=== PATIENT | female | born 1945 | race African-American/Black ===

== ENCOUNTER 2016-07-29 23:36 | Emergency (ER) | payer MEDICARE, MEDICAID | END 2016-07-30 01:06 | disposition left against medical advice (07) | LOC: ER 23:36 | DX: Z53.21 Procedure and treatment not carried out due to patient leaving prior to being seen by health care provider (principal) ==

== ENCOUNTER → 2016-10-25 | Outpatient (CLI) | payer MEDICARE, MEDICAID ==
[2016-10-25 14:19] LABS: ALANINE AMINOTRANSFERASE 25 U/L (9-52); ALBUMIN 3.8 g/dL (3.5-5.0); ALKALINE PHOSPHATASE 83 U/L (38-126); ANION GAP 12 (5-19); ASPARTATE AMINO TRANSFERASE 17 U/L (14-36); BILIRUBIN,DIRECT 0.1 mg/dL (0.0-0.4); BILIRUBIN,TOTAL 0.5 mg/dL (0.2-1.3); BLOOD UREA NITROGEN 10 mg/dL (7-20); CALCIUM 9.6 mg/dL (8.4-10.2); CARBON DIOXIDE 27 mmol/L (22-30); CHLORIDE 106 mmol/L (98-107); CREATININE RESULT 0.52 mg/dL (0.52-1.25); GLUCOSE 126 mg/dL (75-110); POTASSIUM 3.8 mmol/L (3.6-5.0); SODIUM 145.1 mmol/L (137-145); TOTAL PROTEIN 6.5 g/dL (6.3-8.2)
== END ==
LOC: OD 12:55
PROVIDERS: ATTEND Internal Medicine Geriatric Medicine
DX: E11.65 Type 2 diabetes mellitus with hyperglycemia (principal)
CPT/HCPCS: 36415; 80053

== ENCOUNTER 2017-12-11 10:25 | Day surgery (SDC) | payer MEDICARE, MEDICAID ==
[2017-12-08 12:16] LABS: HEMATOCRIT 37.6 % (36.0-47.0); HEMOGLOBIN 12.5 g/dL (12.0-15.5); MEAN CORPUSCULAR HEMOGLOBIN 29.5 pg (27.0-33.4); MEAN CORPUSCULAR HGB CONC 33.4 g/dL (32.0-36.0); MEAN CORPUSCULAR VOLUME 89 fl (80-97); PLATELET COUNT 221 10^3/uL (150-450); RED BLOOD COUNT 4.24 10^6/uL (3.72-5.28); RED CELL DISTRIBUTION WIDTH 15.2 % (11.5-14.0); WHITE BLOOD COUNT 5.1 10^3/uL (4.0-10.5)
--- NOTE | 2017-12-08 12:30 | RADIOLOGY REPORT (SQ) ---
EXAM DESCRIPTION: CHEST PA/LATERAL COMPLETED DATE/TIME: 12/08/2017 11:44 am REASON FOR STUDY: PRE-OP COMPARISON: 04/26/2016 EXAM PARAMETERS: NUMBER OF VIEWS: two views TECHNIQUE: Digital Frontal and Lateral radiographic views of the chest acquired. RADIATION DOSE: NA LIMITATIONS: none FINDINGS: LUNGS AND PLEURA: No opacities, masses or pneumothorax. No pleural effusion. MEDIASTINUM AND HILAR STRUCTURES: No masses or contour abnormalities. HEART AND VASCULAR STRUCTURES: Heart normal size. No evidence for failure. BONES: No acute findings. HARDWARE: None in the chest. OTHER: No other significant finding. IMPRESSION: NO SIGNIFICANT RADIOGRAPHIC FINDING IN THE CHEST. TECHNICAL DOCUMENTATION: JOB ID: [id number] [employer]- All Rights Reserved Reading location - IP/workstation name: [email or web address]
[2017-12-08 12:41] LABS: ANION GAP 12 (5-19); BLOOD UREA NITROGEN 10 mg/dL (7-20); CALCIUM 10.3 mg/dL (8.4-10.2); CARBON DIOXIDE 28 mmol/L (22-30); CHLORIDE 105 mmol/L (98-107); GLUCOSE 99 mg/dL (75-110); POTASSIUM 4.5 mmol/L (3.6-5.0); SODIUM 145.1 mmol/L (137-145)
--- NOTE | 2017-12-08 20:01 | EKG REPORT ---
SEVERITY:- ABNORMAL ECG - SINUS RHYTHM ATRIAL PREMATURE COMPLEX CONSIDER LEFT VENTRICULAR HYPERTROPHY : Confirmed by: Kennedi Michele MD 08-Dec-2017 20:00:40
[~2017-12-11 10:25] MED LIST: LACTATED RINGERS 1000 ML IV PRN; LIDOCAINE 0.5% INJ-PF (5 MG/ML) 50 ML SDV SUBCUT PRN
[2017-12-11] MEDS ORDERED: MIDAZOLAM 2 MG/2 ML INJ ONE (12:00)
[2017-12-11] MEDS ORDERED: PROPOFOL INJ 200 MG/20 ML VIAL IV ONE (12:00)
[2017-12-11] MEDS ORDERED: FENTANYL CITRATE INJ/PF 100 MCG/2 ML AMPUL ONE (12:00)
[2017-12-11] MEDS ORDERED: BUPIVACAINE HCL 0.5%/EPI 1:200000 INJ 1.8 ML CARTRIDGE ONE ×2 (12:03→12:29)
[2017-12-11] MEDS ORDERED: LIDOCAINE 2%/EPINEPHRINE INJ 1.7 ML CARTRIDGE ONE ×2 (12:03→12:47)
[2017-12-11] MEDS ORDERED: DIPHENHYDRAMINE HCL 50 MG/ML VIAL IV PRN (12:53)
[2017-12-11] MEDS ORDERED: FENTANYL CITRATE INJ/PF 100 MCG/2 ML AMPUL IV PRN ×3 (12:53)
[2017-12-11] MEDS ORDERED: MEPERIDINE HCL/PF INJ 25 MG/1 ML DISP.SYRIN IV PRN (12:53)
[2017-12-11] MEDS ORDERED: PROMETHAZINE HCL INJ 25 MG/1 ML VIAL IV PRN (12:53)
--- NOTE | 2017-12-11 14:32 | Operative Report ---
Operative Report DATE OF SURGERY: 12/11/17 Operative Report: preop diagnosis: non-retorative maxillary dentition, palatal leidy, non- restorative mandibular teeth 17,18, 25, 32 postop diagnosis: randall surgery performed: extraction of teeth 3,4,6,7,8,10,13,16,17,18,25,32; palatal leidy removal, alveoloplasty all four quadrants surgeon: Koby EBL:15ml Fluids: 1000ml LR tissue sent: none complications: none PREOPERATIVE DIAGNOSIS: non-restorable maxillary dentition (3,4,6,7,8,10, 13,16) . palatal leidy. non-restorable mandibular teeth #17,18,25,32 POSTOPERATIVE DIAGNOSIS: Same as preop OPERATION: Surgical extraction of all remaining maxillary teeth (3,4,6,7,8,10,13 ,16. Surgical extraction of mandibular teeth #17,18,25,32. Surgical removal of palatal leidy. Alveoloplasty UR, UL, LL, LR SURGEON: TAE PINK 1ST CONFIGURATION CONSULTANT: none 2ND Senior Sales Operations Manager: none ANESTHESIA: GA TISSUE REMOVED OR ALTERED: all remaining maxillary teeth, mandibular teeth 17,18 ,25,32. excess palatal bone COMPLICATIONS: none ESTIMATED BLOOD LOSS: 15ml INTRAOPERATIVE FINDINGS: Consistent with preop diagnosis PROCEDURE: Pt taken to MOR #3. GA induced via GNETA by anesthesia team. After adequate anesthesia and vital signs verified care of pt turned over to surgerical team. Local Anesthetic injected into all four quadrants. Throat pack placed. Teeth numbered 3, 4, 6, 7, 8 10, 13, 16, 17, 18, 25, 32 extracted in the standard surgical fashion and delivered from the oral cavity with a combination of esperanza hemostats and forceps, Alveoloplasties performed with ronguer hemostats and bone file in all four quadrants. Attention was then directed to the patient's palate where a # 15 blade was utilized to make a full thickness mucoperiosteal incision in a Y outline over the palatal Leidy. A full thickness mucoperiosteal flap was lifted with a #9 molt periosteal elevator. A 703 bur on rotating surgical handpiece was used to section the leidy in a grid like osteotomy pattern. A flat chisal was then used to separate the parts and smooth the palatal bone. All surgical wounds were then irrigated with copious sterile irrigation and the soft tissue were reapproximated with 4.0 chromic gut suture. The throat pack was removed and care of the patient returned to the anesthesia team who awakened the patient who maintained stable vital signs and tolerated the procedure well. the patient was transported to the PACU.
[2017-12-11] MEDS ORDERED: HYDROCODONE/ACETAMINOPHEN 5-325 MG TABLET PO PRN (14:36)
[2017-12-11] MEDS ORDERED: PROMETHAZINE HCL 25 MG TABLET PO PRN (14:37)
[2017-12-11] MEDS ORDERED: ONDANSETRON 4 MG TAB.RAPDIS PO PRN (14:37)
[2017-12-11] MEDS ORDERED: SUCCINYLCHOLINE CHLORIDE INJ 200 MG/10 ML VIAL ONE (15:23)
[2017-12-11] MEDS ORDERED: GLYCOPYRROLATE 1 MG/5 ML SYRINGE ONE (15:23)
[2017-12-11 16:23] VITALS: BP 152/74
== END 2017-12-11 16:20 | disposition home or self-care (01) ==
LOC: OROUT 10:25
PROVIDERS: ATTEND Dentist Oral and Maxillofacial Surgery
DX: K02.9 Dental caries, unspecified (principal); K08.89 Other specified disorders of teeth and supporting structures; M27.0 Developmental disorders of jaws; D64.9 Anemia, unspecified; J44.9 Chronic obstructive pulmonary disease, unspecified; K21.9 Gastro-esophageal reflux disease without esophagitis; E78.00 Pure hypercholesterolemia, unspecified; I10 Essential (primary) hypertension; E78.5 Hyperlipidemia, unspecified; M19.90 Unspecified osteoarthritis, unspecified site; F17.210 Nicotine dependence, cigarettes, uncomplicated; E11.9 Type 2 diabetes mellitus without complications; Z79.01 Long term (current) use of anticoagulants; Z01.818 Encounter for other preprocedural examination; Z88.8 Allergy status to other drugs, medicaments and biological substances; Z88.2 Allergy status to sulfonamides; Z79.899 Other long term (current) drug therapy; Z79.51 Long term (current) use of inhaled steroids
CPT/HCPCS: 41899; 41874 ×4; 21032; 93005; 36415; 82962; 85027; 80048; 71046; 93010; J2250; J3490 ×2; J3010; J0330; J2704; 170

== ENCOUNTER → 2018-08-06 | Outpatient (CLI) | payer MEDICARE, MEDICAID ==
--- NOTE | 2018-08-06 14:33 | WOMENS IMAGING REPORT ---
EXAM DESCRIPTION: BILAT DIAGNOSTIC MAMMO W/CAD; U/S BREAST UNILAT LIMITED COMPLETED DATE/TIME: 08/06/2018 11:27 am; 08/06/2018 12:19 pm REASON FOR STUDY: N63.24, UNSPECIFIED LUMP IN LEFT BREAST,LOWER INNER QUADRANT; N63.24 LEFT BREAST N 63.24 UNSPECIFIED LUMP IN THE LEFT BREAST, LOWER INNER QUAD COMPARISON: Bilateral screening 05/07/2017 TECHNIQUE: Standard craniocaudal and mediolateral oblique views of each breast recorded using digita l acquisition. Left breast 90 mediolateral view, left breast cone compression mammograms in the MLO and CC orientat ions Left breast ultrasound was also performed in the area of palpable abnormality LIMITATIONS: None. FINDINGS: RIGHT BREAST MASSES: No suspicious masses. CALCIFICATIONS: No new or suspicious calcifications. ARCHITECTURAL DISTORTION: None. DEVELOPING DENSITY: None. ASYMMETRY: None noted. OTHER: No other significant findings. LEFT BREAST MASSES: In the lower inner quadrant left breast 8 to 9 o'clock position, a 2 cm mass is present with partial border loss and calcifications highly suspicious for malignancy. CALCIFICATIONS: No new or suspicious calcifications. ARCHITECTURAL DISTORTION: None. DEVELOPING DENSITY: None. ASYMMETRY: None noted. OTHER: No other significant finding. Read with the assistance of CAD: .[facility] - R2 Cenova Version 1.3 .[facility] - R2 Cenova Version 2.[address] - R2 Cenova Version 2.4 .[facility] R[place] Cenova Version 2.4 .[facility] - R2 [employer] Sales Representative Version 9.2 Left breast ultrasound: Ultrasound of the left breast was performed. A 2 x 1.8 x 1.2 cm hypoechoic solid mass with irregular borders and internal color flow is present in the left breast lower inner quadrant 8 to 9 o'clock po sition. Some calcifications within the mass are identified at ultrasound. This is highly suspicious for malignancy. Ultrasound-guided core biopsy and post biopsy clip placement with immediate follow- up two-view mammogram recommended. Ultrasound of the left axilla today demonstrates no enlarged lymph nodes. IMPRESSION: No mammographic evidence for malignancy right breast. Mass lower inner quadrant left breast highly suspicious for malignancy. Ultrasound-guided core biops y and post biopsy clip placement with immediate follow-up two-view mammogram is recommended. BREAST DENSITY: c. The breasts are heterogeneously dense, which may obscure small masses. BIRAD: 5 Highly suggestive of malignancy. Appropriate action should be taken. RECOMMENDATION: RECOMMENDED FOLLOW UP: Left breast ultrasound-guided core biopsy, post biopsy clip p lacement with immediate follow-up two-view mammogram SPECIFIC INTERVENTION/IMAGING/CONSULTATION RECOMMENDED:Left breast biopsy COMMUNICATION:Patient notified by letter COMMENT: The patient has been notified of the results by letter per SA requirements. Additional no tification policies are in place for contacting patient with suspicious or incomplete findings. Quality ID #[id number]: The [employer] recommends an annual screening mammogram for women aged 40 years or over. This facility utilizes a reminder system to ensure that all patients receive reminder letters, and/or direct phone calls for appointments. This includes reminders for routine scr eening mammograms, diagnostic mammograms, or other Breast Imaging Interventions when appropriate. Th is patient will be placed in the appropriate reminder system. The [employer] (ACR) has developed recommendations for screening MRI of the breast s in certain patient populations, to be used in conjunction with mammography. Breast MRI surveillanc e may be appropriate for women with more than 20% lifetime risk of developing breast cancer as deter mined by genetic testing, significant family history of the disease, or history of mantle radiation f or Hodgkins Disease. ACR Practice Guidelines 2008. TECHNICAL DOCUMENTATION: FINDING NUMBER: (1) ASSESSMENT: (1) JOB ID: [id number] [employer]- All Rights Reserved Reading location - IP/workstation name: [email or web address]
--- NOTE | 2018-08-06 14:33 | WOMENS IMAGING REPORT ---
EXAM DESCRIPTION: BILAT DIAGNOSTIC MAMMO W/CAD; U/S BREAST UNILAT LIMITED COMPLETED DATE/TIME: 08/06/2018 11:27 am; 08/06/2018 12:19 pm REASON FOR STUDY: N63.24, UNSPECIFIED LUMP IN LEFT BREAST,LOWER INNER QUADRANT; N63.24 LEFT BREAST N 63.24 UNSPECIFIED LUMP IN THE LEFT BREAST, LOWER INNER QUAD COMPARISON: Bilateral screening 05/07/2017 TECHNIQUE: Standard craniocaudal and mediolateral oblique views of each breast recorded using digita l acquisition. Left breast 90 mediolateral view, left breast cone compression mammograms in the MLO and CC orientat ions Left breast ultrasound was also performed in the area of palpable abnormality LIMITATIONS: None. FINDINGS: RIGHT BREAST MASSES: No suspicious masses. CALCIFICATIONS: No new or suspicious calcifications. ARCHITECTURAL DISTORTION: None. DEVELOPING DENSITY: None. ASYMMETRY: None noted. OTHER: No other significant findings. LEFT BREAST MASSES: In the lower inner quadrant left breast 8 to 9 o'clock position, a 2 cm mass is present with partial border loss and calcifications highly suspicious for malignancy. CALCIFICATIONS: No new or suspicious calcifications. ARCHITECTURAL DISTORTION: None. DEVELOPING DENSITY: None. ASYMMETRY: None noted. OTHER: No other significant finding. Read with the assistance of CAD: .[facility] - R2 Cenova Version 1.3 .[facility] Imaging - R2 Cenova Version 2.1 .[facility] Imaging - R2 Cenova Version 2.4 .[facility] [place] - R2 Cenova Version 2.4 .[facility] - R2 Rough Rounder Machine Version 9.2 Left breast ultrasound: Ultrasound of the left breast was performed. A 2 x 1.8 x 1.2 cm hypoechoic solid mass with irregular borders and internal color flow is present in the left breast lower inner quadrant 8 to 9 o'clock po sition. Some calcifications within the mass are identified at ultrasound. This is highly suspicious for malignancy. Ultrasound-guided core biopsy and post biopsy clip placement with immediate follow- up two-view mammogram recommended. Ultrasound of the left axilla today demonstrates no enlarged lymph nodes. IMPRESSION: No mammographic evidence for malignancy right breast. Mass lower inner quadrant left breast highly suspicious for malignancy. Ultrasound-guided core biops y and post biopsy clip placement with immediate follow-up two-view mammogram is recommended. BREAST DENSITY: c. The breasts are heterogeneously dense, which may obscure small masses. BIRAD: 5 Highly suggestive of malignancy. Appropriate action should be taken. RECOMMENDATION: RECOMMENDED FOLLOW UP: Left breast ultrasound-guided core biopsy, post biopsy clip p lacement with immediate follow-up two-view mammogram SPECIFIC INTERVENTION/IMAGING/CONSULTATION RECOMMENDED:Left breast biopsy COMMUNICATION:Patient notified by letter COMMENT: The patient has been notified of the results by letter per SA requirements. Additional no tification policies are in place for contacting patient with suspicious or incomplete findings. Quality ID #[id number]: The [employer] recommends an annual screening mammogram for women aged 40 years or over. This facility utilizes a reminder system to ensure that all patients receive reminder letters, and/or direct phone calls for appointments. This includes reminders for routine scr eening mammograms, diagnostic mammograms, or other Breast Imaging Interventions when appropriate. Th is patient will be placed in the appropriate reminder system. The [employer] (ACR) has developed recommendations for screening MRI of the breast s in certain patient populations, to be used in conjunction with mammography. Breast MRI surveillanc e may be appropriate for women with more than 20% lifetime risk of developing breast cancer as deter mined by genetic testing, significant family history of the disease, or history of mantle radiation f or Hodgkins Disease. ACR Practice Guidelines 2008. TECHNICAL DOCUMENTATION: FINDING NUMBER: (1) ASSESSMENT: (1) JOB ID: [id number] [employer]- All Rights Reserved Reading location - IP/workstation name: [email or web address]
== END ==
LOC: WI 10:54
PROVIDERS: ATTEND Internal Medicine Geriatric Medicine
DX: N63.24 Unspecified lump in the left breast, lower inner quadrant (principal)
CPT/HCPCS: 76642; 77066

== ENCOUNTER → 2018-08-20 | Day surgery (SDC) | payer MEDICARE, MEDICAID ==
[~2018-08-20] MED LIST changes: -LACTATED RINGERS 1000 ML IV PRN; -LIDOCAINE 0.5% INJ-PF (5 MG/ML) 50 ML SDV SUBCUT PRN; +LIDOCAINE 1% INJ-PF (10 MG/ML) 30 ML SDV ONE
== END ==
LOC: WI 10:35
PROVIDERS: ATTEND Internal Medicine Medical Oncology
DX: D05.12 Intraductal carcinoma in situ of left breast (principal); N63.24 Unspecified lump in the left breast, lower inner quadrant
CPT/HCPCS: 88342 ×2; 88341 ×2; 88305 ×2; 19083; J3490

== ENCOUNTER 2019-05-27 11:57 | Emergency (ER) | payer MEDICARE, MEDICAID ==
--- NOTE | 2019-05-27 12:21 | ER Document Report ---
ED Medical Screen (RME) - General Chief Complaint: High Blood Pressure Stated Complaint: POSSIBLE HIGH BLOOD PRESSURE Time Seen by Provider: 05/27/19 12:15 Primary Care Provider: NYA RAMIREZ MD [Primary Care Provider] - Follow up as needed TRAVEL OUTSIDE OF THE [place] IN LAST 30 DAYS: No - HPI Notes: 05/27/19 73-year-old female to the emergency department with complaints of elevated blood pressure. She states she was seen by primary care yesterday and her blood pressure was in the 200 systolic. She was given hydralazine and improved. She is written for hydralazine but this morning her blood pressure was 233/90. She states that her primary care physician told her that if her blood pressure was high like that this morning that she should come to the emergency department. She does admit that she has had occasional intermittent headaches but does not have one this morning and that she had bilateral hand numbness for about a week. She denies any difficulty talking or speaking she denies any shortness of breath or chest pain. She did take all of her medicines that she normally takes for her blood pressure this morning except for the new prescription for the hydralazine. I performed a brief medical screening exam on the patient and determined she will need further management and care by main side provider. Given the numbness in her fingers we will go ahead and obtain a head CT. Patient is aware of the plan and agrees. I have placed imaging and lab orders to expedite her care. - Related Data Allergies/Adverse Reactions: ferrous sulfate [Ferrous Sulfate] Allergy (Verified 05/27/19 12:20) lisinopril [Lisinopril] Adverse Reaction (Verified 05/27/19 12:20) Past Medical History - Past Medical History Cardiac Medical History: Reports: Hx Hypercholesterolemia, Hx Hypertension Denies: Hx Coronary Artery Disease, Hx Heart Attack Pulmonary Medical History: Reports: Hx Asthma Denies: Hx Bronchitis, Hx COPD, Hx Pneumonia Neurological Medical History: Denies: Hx Cerebrovascular Accident, Hx Seizures Endocrine Medical History: Reports: Hx Diabetes Mellitus Type 2 - hospitalized last month for diabetes, had similar throat pain and EGD done Renal/ Medical History: Denies: Hx Peritoneal Dialysis GI Medical History: Denies: Hx Hepatitis, Hx Hiatal Hernia, Hx Ulcer Musculoskeltal Medical History: Comment Only Hx Arthritis - back and legs Infectious Medical History: Denies: Hx Hepatitis Past Surgical History: Reports: Hx Breast Surgery - left, Hx Cholecystectomy, Hx Orthopedic Surgery - left knee. Denies: Hx Hysterectomy, Hx Mastectomy, Hx Open Heart Surgery, Hx Pacemaker - Immunizations Hx Diphtheria, Pertussis, Tetanus Vaccination: Yes Doctor's Discharge - Discharge Referrals: NYA RAMIREZ MD [Primary Care Provider] - Follow up as needed
[2019-05-27 13:21] LABS: ABSOLUTE EOSINOPHILS # (AUTO) 0.1 10^3/uL (0.0-0.6); ABSOLUTE LYMPHOCYTES (AUTO) 1.5 10^3/uL (0.5-4.7); ABSOLUTE MONOCYTES (AUTO) 0.5 10^3/uL (0.1-1.4); ABSOLUTE NEUT (AUTO) 2.8 10^3/uL (1.7-8.2); BASOPHILS % (AUTO) 0.8 % (0-2); EOSINOPHILS % (AUTO) 1.4 % (0-6); HEMATOCRIT 33.6 % (36.0-47.0); HEMOGLOBIN 11.2 g/dL (12.0-15.5); LYMPHOCYTES % (AUTO) 30.4 % (13-45); MEAN CORPUSCULAR HGB CONC 33.2 g/dL (32.0-36.0); MEAN CORPUSCULAR VOLUME 93 fl (80-97); MONOCYTES % (AUTO) 10.6 % (3-13); PLATELET COUNT 173 10^3/uL (150-450); RED CELL DISTRIBUTION WIDTH 15.3 % (11.5-14.0); SEGMENTED NEUTROPHILS % (AUTO) 56.8 % (42-78); TOTAL CELLS COUNTED % (AUTO) 100 %
[2019-05-27 13:43] LABS: ALBUMIN 3.7 g/dL (3.5-5.0); ALKALINE PHOSPHATASE 96 U/L (38-126); ANION GAP 6 (5-19); ASPARTATE AMINO TRANSFERASE 22 U/L (14-36); BILIRUBIN,DIRECT 0.1 mg/dL (0.0-0.4); BILIRUBIN,TOTAL 0.6 mg/dL (0.2-1.3); BLOOD UREA NITROGEN 13 mg/dL (7-20); CALCIUM 9.3 mg/dL (8.4-10.2); CARBON DIOXIDE 29 mmol/L (22-30); CHLORIDE 105 mmol/L (98-107); GLUCOSE 129 mg/dL (75-110); POTASSIUM 3.8 mmol/L (3.6-5.0); TOTAL PROTEIN 7.2 g/dL (6.3-8.2)
--- NOTE | 2019-05-27 13:44 | RADIOLOGY REPORT (SQ) ---
EXAM DESCRIPTION: CT HEAD WITHOUT COMPLETED DATE/TIME: 05/27/2019 1:20 pm REASON FOR STUDY: elevated BP, hand numbness for one week COMPARISON: None. TECHNIQUE: Axial images acquired through the brain without intravenous contrast. Images reviewed wi th bone, brain and subdural windows. Additional sagittal and coronal reconstructions were generated. Images stored on PACS. All CT scanners at this facility use dose modulation, iterative reconstruction, and/or weight based d osing when appropriate to reduce radiation dose to as low as reasonably achievable (ALARA). [facility]: Dose Right [facility]: CareDose [facility]: Dose Right [facility]: Teradose 4D [facility]: [employer] [employer] RADIATION DOSE: CT Rad equipment meets quality standard of care and radiation dose reduction techniq ues were employed. CTDIvol: 53.2 mGy. DLP: 1017 mGy-cm. mGy. LIMITATIONS: None. FINDINGS: VENTRICLES: Normal size and contour. CEREBRUM: No masses. No hemorrhage. No midline shift. No evidence for acute infarction. Benign ca lcification bilateral basal ganglia. Minimal bifrontal and biparietal low attenuation from chronic s mall vessel ischemic change in the deep hemispheric white matter. CEREBELLUM: No masses. No hemorrhage. No alteration of density. No evidence for acute infarction. EXTRAAXIAL SPACES: No fluid collections. No masses. ORBITS AND GLOBE: No intra- or extraconal masses. Post left cataract surgery CALVARIUM: No fracture. PARANASAL SINUSES: No fluid or mucosal thickening. SOFT TISSUES: No mass or hematoma. OTHER: No other significant finding. IMPRESSION: No acute findings. Minimal age-appropriate chronic small vessel ischemic change. EVIDENCE OF ACUTE STROKE: NO. COMMENT: Quality ID # [id number]: Final reports with documentation of one or more dose reduction techniques (e.g., Automated exposure control, adjustment of the mA and/or kV according to patient size, use of iterative reconstruction technique) TECHNICAL DOCUMENTATION: JOB ID: [id number] [employer]- All Rights Reserved Reading location - IP/workstation name: [email or web address]
[2019-05-27] MEDS ORDERED: HYDRALAZINE HCL 10 MG TABLET PO ONE (15:03)
--- NOTE | 2019-05-27 15:07 | ER Document Report ---
ED General - General Chief Complaint: Blood Pressure Problem Stated Complaint: POSSIBLE HIGH BLOOD PRESSURE Time Seen by Provider: 05/27/19 12:15 Primary Care Provider: NYA RAMIREZ MD [ACTIVE STAFF] - Follow up as needed Mode of Arrival: Ambulatory Information source: Patient, Relative, [facility] Records Notes: 73-year-old female to the emergency department with complaints of elevated blood pressure. She states she was seen by primary care yesterday and her blood p ressure was in the 200 systolic. She was given hydralazine and improved. She is written for hydralazine but this morning her blood pressure was 233/90. She states that her primary care physician told her that if her blood pressure was high like that this morning that she should come to the emergency department. She does admit that she has had occasional intermittent headaches but does not have one this morning and that she had bilateral hand numbness for about a week. She denies any difficulty talking or speaking she denies any shortness of breath or chest pain. She did take all of her medicines that she normally takes for her blood pressure this morning except for the new prescription for the hydralazine. TRAVEL OUTSIDE OF THE [place] IN LAST 30 DAYS: No - HPI Onset: This morning Onset/Duration: Sudden Quality of pain: No pain Severity: None Pain Level: Denies Associated symptoms: None. denies: Chest pain, Headache, Leg swelling, Nausea, Vomiting, Shortness of breath, Weakness Exacerbated by: Denies Relieved by: Denies Similar symptoms previously: Yes Recently seen / treated by doctor: Yes - Related Data Allergies/Adverse Reactions: ferrous sulfate [Ferrous Sulfate] Allergy (Verified 05/27/19 12:20) lisinopril [Lisinopril] Adverse Reaction (Verified 05/27/19 12:20) Past Medical History - General Information source: Patient, Relative, Dr. Sotelo, [facility], [facility] Records - Social History Smoking Status: Never Smoker Chew tobacco use (# tins/day): No Frequency of alcohol use: None Drug Abuse: None Lives with: Family Family History: Reviewed & Not Pertinent Patient has suicidal ideation: No Patient has homicidal ideation: No - Past Medical History Cardiac Medical History: Reports: Hx Hypercholesterolemia, Hx Hypertension Denies: Hx Coronary Artery Disease, Hx Heart Attack Pulmonary Medical History: Reports: Hx Asthma Denies: Hx Bronchitis, Hx COPD, Hx Pneumonia Neurological Medical History: Denies: Hx Cerebrovascular Accident, Hx Seizures Endocrine Medical History: Reports: Hx Diabetes Mellitus Type 2 - hospitalized last month for diabetes, had similar throat pain and EGD done Renal/ Medical History: Denies: Hx Peritoneal Dialysis GI Medical History: Denies: Hx Hepatitis, Hx Hiatal Hernia, Hx Ulcer Musculoskeletal Medical History: Comment Only Hx Arthritis - back and legs Infectious Medical History: Denies: Hx Hepatitis Past Surgical History: Reports: Hx Breast Surgery - left, Hx Cholecystectomy, Hx Orthopedic Surgery - left knee. Denies: Hx Hysterectomy, Hx Mastectomy, Hx Open Heart Surgery, Hx Pacemaker - Immunizations Hx Diphtheria, Pertussis, Tetanus Vaccination: Yes Hx Pneumococcal Vaccination: 08/07/14 Review of Systems - Review of Systems Notes: REVIEW OF SYSTEMS: CONSTITUTIONAL : Denies fever, chills, or sweats. Denies recent illness. Denies weight loss, recent hospitalizations. EENT: Denies visual changes, eye pain. Denies sore throat, oral lesions, difficulty swallowing. CARDIOVASCULAR: Denies chest pain. Denies palpitations. Denies lower extremity edema. RESPIRATORY: Denies cough. Denies shortness of breath, wheezing. GASTROINTESTINAL: Denies abdominal pain or distention. Denies nausea, vomiting, or diarrhea. Denies blood in vomitus, stools, or per rectum. Denies black, tarry stools. Denies constipation. GENITOURINARY: Denies difficulty urinating, painful urination, frequency, blood in urine, or vaginal discharge. MUSCULOSKELETAL: Denies back or neck pain or stiffness. Denies joint pain or swelling. SKIN: Denies rash, lesions or sores. HEMATOLOGIC : Denies easy bruising or bleeding. LYMPHATIC: Denies swollen glands. NEUROLOGICAL: Denies confusion or altered mental status. Denies loss of consciousness. Denies dizziness or lightheadedness. Denies headache. Denies weakness or paralysis. Denies problems difficulty with ambulation, slurred speech. Denies sensory loss, numbness, or tingling. Denies seizures. PSYCHIATRIC: Denies anxiety or stress. Denies depression, suicidal ideation, or homicidal ideation. Denies visual or auditory hallucinations. Physical Exam - Vital signs Vitals: Temp Pulse Resp BP Pulse Ox 98.7 F 99 16 187/60 H 97 05/27/19 12:18 05/27/19 12:18 05/27/19 12:18 05/27/19 12:18 05/27/19 12:18 - Notes Notes: PHYSICAL EXAMINATION: GENERAL: Well-appearing, well-nourished and in no acute distress. HEAD: Atraumatic, normocephalic. EYES: Pupils equal round and reactive to light, extraocular movements intact, conjunctiva are normal. ENT: Nares patent, oropharynx clear without exudates. Moist mucous membranes. NECK: Normal range of motion, supple without lymphadenopathy LUNGS: Breath sounds clear to auscultation bilaterally and equal. No wheezes rales or rhonchi. HEART: Regular rate and rhythm without murmurs ABDOMEN: Soft, nontender, nondistended abdomen. No guarding, no rebound. No masses appreciated. Female : deferred Musculoskeletal: Normal range of motion, no pitting or edema. No cyanosis. NEUROLOGICAL: Cranial nerves grossly intact. Normal speech, normal gait. Normal sensory, motor exams PSYCH: Normal mood, normal affect. SKIN: Warm, Dry, normal turgor, no rashes or lesions noted. Course - Re-evaluation Re-evalutation: 05/27/19 15:05 Laboratory 05/27/19 05/27/19 05/27/19 13:04 13:04 13:04 WBC 5.0 RBC 3.60 L Hgb 11.2 L Hct 33.6 L MCV 93 MCH 31.0 MCHC 33.2 RDW 15.3 H Plt Count 173 Lymph % (Auto) 30.4 [place] % (Auto) 10.6 Eos % (Auto) 1.4 Baso % (Auto) 0.8 Absolute Neuts (auto) 2.8 Absolute Lymphs (auto) 1.5 Absolute Monos (auto) 0.5 Absolute Eos (auto) 0.1 Absolute Basos (auto) 0.0 Seg Neutrophils % 56.8 Sodium 140.1 Potassium 3.8 Chloride 105 Carbon Dioxide 29 Anion Gap 6 BUN 13 Creatinine 0.75 Est GFR ( Amer) > 60 Est GFR (MDRD) Non-Af > 60 Glucose 129 H Calcium 9.3 Total Bilirubin 0.6 Direct Bilirubin 0.1 Neonat Total Bilirubin Not Reportable Neonat Direct Bilirubin Not Reportable Neonat Indirect Bili Not Reportable AST 22 ALT 20 Alkaline Phosphatase 96 Troponin I < 0.012 Total Protein 7.[address] 05/27/19 12:21 IMPRESSION: No acute findings. Minimal age-appropriate chronic small vessel ischemic change. EVIDENCE OF ACUTE STROKE: NO. Temp Pulse Resp BP Pulse Ox 98.7 F 99 16 181/76 H 98 05/27/19 12:18 05/27/19 12:18 05/27/19 14:30 05/27/19 14:30 05/27/19 14:30 Presentation of asymptomatic hypertension. Patient was placed on new blood pressure medication yesterday but had not yet filled it. She states when she went to fill the prescription the pharmacist noted her elevated blood pressure and advised her to come to the emergency department. Patient was just seen by her primary care physician yesterday and has not underwent the therapy he has advised for poorly controlled blood pressure. Patient denies any symptoms concerning for SAH, dissection, NE, or encephalopaty. Alert, oriented, and denies any symptoms at time of assessment. Normal neuro exam. I have discussed critical importance of follow up with PCP within 1 week and increased risk of devastating stroke, heart attack, respiratory distress, and other life threatening complications if blood pressure is not reduced appropriately. Diet and exercise habits also discussed. Patient will be discharged with return precautions and follow-up recommendations. 05/29/19 17:54 Patient was evaluated and treated as appropriate for the patient's presenting symptoms and complaint, with consideration of any critical or life threatening conditions that may be associated with their obtained history and exam as noted above. All results were discussed with patient and... Patient provided the opportunity to ask questions, and express concerns. Patient was educated on treatments based on their presumed diagnosis as noted above. At this time we will discharge the patient with return precautions and follow-up recommendations. Verbal discharge instructions given a the bedside. Medication warnings reviewed. Patient is in agreement with this plan and has verbalized understanding of return precautions. After careful consideration I feel that that patient can be safely discharged from the emergency department, they were advised to followup with a primary care physician in 2-3 days. Dictation on this chart was performed using voice recognition software and may result in unintended grammatical, spelling, syntax or errors. - Vital Signs Vital signs: Temp Pulse Resp BP Pulse Ox 98.7 F 99 14 216/71 H 98 05/27/19 12:18 05/27/19 12:18 05/27/19 15:01 05/27/19 15:01 05/27/19 15:01 - Laboratory Result Diagrams: 05/27/19 13:04 05/27/19 13:04 Laboratory results interpreted by me: 05/27/19 05/27/19 13:04 13:04 RBC 3.60 L Hgb 11.2 L Hct 33.6 L RDW 15.3 H Glucose 129 H - Diagnostic Test Radiology reviewed: Image reviewed, Reports reviewed - EKG Interpretation by Me EKG shows normal: Sinus rhythm Rate: Bradycardia Rhythm: NSR When compared to previous EKG there are: No significant change Discharge - Discharge Clinical Impression: HTN (hypertension) Qualifiers: Hypertension type: unspecified Qualified Code(s): I10 - Essential (primary) hypertension Condition: Good Disposition: HOME, SELF-CARE Instructions: High Blood Pressure ([facility]) Additional Instructions: You were seen today for blood pressure that was high. This is a long-term risk factor for multiple medical problems including heart attack and stroke. However, the blood pressure in of itself will not cause you to have an acute stroke or heart attack over the course of just several days or weeks. You need to have a gradual reduction of your blood pressure back to normal levels over the next several months in conjunction with your primary care physician. Return if you develop headache, weakness, numbness, chest pain, pass out, or have any other symptoms that are concerning to you. Follow up with your [id number] hours for further care or return to the ED IMMEDIATELY if symptoms worsen or you have any concerns. If you cannot afford to follow up with your primary care physician a list of low cost clinics have been provided at the end of your discharge papers as well. Most prescribed medications have multiple side effects. The safest thing to do is when filling your prescription speak to your pharmacist regarding possible interactions with your normal home medications and over the counter medications such as Ibuprofen, Tylenol, Benadryl. If you experience any symptoms that cause you discomfort or concern you should discontinue the medication immediately and return to the emergency room or call your primary care physician. Referrals: NYA RAMIREZ MD [ACTIVE STAFF] - Follow up as needed
[2019-05-27 15:14] VITALS: BP 216/71
--- NOTE | 2019-05-27 18:12 | EKG REPORT ---
SEVERITY:- ABNORMAL ECG - SINUS BRADYCARDIA CONSIDER LEFT VENTRICULAR HYPERTROPHY : Confirmed by: Hitesh Puri MD 27-May-2019 18:11:39
--- NOTE | 2019-05-27 18:12 | EKG REPORT ---
SEVERITY:- ABNORMAL ECG - SINUS BRADYCARDIA CONSIDER OLD ANTEROSEPTAL SC : Confirmed by: Hitesh Puri MD 27-May-2019 18:11:07
== END 2019-05-27 15:30 | disposition home or self-care (01) ==
LOC: ER 11:57
DX: I10 Essential (primary) hypertension (principal); Z79.899 Other long term (current) drug therapy; R20.0 Anesthesia of skin; R00.1 Bradycardia, unspecified; J45.909 Unspecified asthma, uncomplicated; E11.9 Type 2 diabetes mellitus without complications; Z88.8 Allergy status to other drugs, medicaments and biological substances
CPT/HCPCS: 93005; 99284; 36415; 85025; 80053; 84484; 70450; 93010; A9270; J3490

== ENCOUNTER → 2019-07-29 | Outpatient (CLI) | payer MEDICARE, MEDICAID ==
--- NOTE | 2019-07-29 13:15 | WOMENS IMAGING REPORT ---
EXAM DESCRIPTION: BONE DENSITY HIP/SPINE COMPLETED DATE/TIME: 07/29/2019 11:20 am REASON FOR STUDY: Z79.811 BONE DENSITY Z79.811 CUSTODIAL (CURRENT) USE OF AROMATASE INHIBITORS Z12. 31 ENCNTR SCREEN MAMMOGRAM FOR MALIGNANT NEOPLASM OF JENNY COMPARISON: 10/22/2007 TECHNIQUE: Dual-Energy X-ray Absorptiometry (DEXA) of the AP Spine and Hip. LIMITATIONS: None. FINDINGS: LUMBAR SPINE: The bone mineral density (BMD) measured from L1-L4 in the AP projection correlates with a T-score of 0.6, which is normal as defined by the World Health Organization. BMD Change vs Baseline: +37.7% HIP: The bone mineral density (BMD) measured in the left hip correlates with a T-score of -1.3, which is o steopenia as defined by the World Health Organization. BMD Change vs Baseline: -16.5% 10 year Fracture Risk Assessment: Major Osteoporotic Fracture: 4% Hip Fracture: 0.5% IMPRESSION: 1. LUMBAR SPINE WHO CLASSIFICATION: Normal 2. HIP WHO CLASSIFICATION: Osteopenia OVERALL ASSESSMENT: WHO CLASSIFICATION: Osteopenia COMMENT: The World Health Organization defines low BMD as follows: T-score: Normal: Greater than -1.0 Osteopenia: Between -1.0 and -2.5 Osteoporosis: Less than -2.5 without fractures Established osteoporosis: Less than -2.5 with fractures In general, you may wish to consider: Diagnosis Treatment Follow-up DEXA Normal BMD Prevention 2-3 years Osteopenia Prevention/Therapy 1-2 years Osteoporosis Therapy Yearly TECHNICAL DOCUMENTATION: JOB ID: [id number] [employer]- All Rights Reserved Reading location - IP/workstation name: ED
--- NOTE | 2019-07-29 13:45 | WOMENS IMAGING REPORT ---
EXAM DESCRIPTION: 3D SCREENING MAMMO RIGHT COMPLETED DATE/TIME: 07/29/2019 11:20 am REASON FOR STUDY: Z12.31 SCREENING MAMMO Z79.811 SENIOR CARE (CURRENT) USE OF AROMATASE INHIBITORS Z1 2.31 ENCNTR SCREEN MAMMOGRAM FOR MALIGNANT NEOPLASM OF JENNY COMPARISON: 08/06/2018. EXAM PARAMETERS: Standard craniocaudal and mediolateral oblique views of the breast recorded using digital acquisition and breast tomosynthesis. Read with the assistance of CAD. .[facility] - R2 Adjunct Spanish Instructor Version 9.2 LIMITATIONS: None. FINDINGS: BREAST: right Findings present which are benign by mammographic criteria. No suspicious masses, calcifications or a rchitectural distortion. Pertinent benign findings: Stable calcifications. Benign mammographic findings may include one or more of the following: Smooth masses, popcorn/rim/co arse calcifications, asymmetries, post-procedure changes, and lesions with long-standing stability. IMPRESSION: BENIGN FINDINGS. BIRADS 2. BREAST DENSITY: c. The breasts are heterogeneously dense, which may obscure small masses. BIRAD: ASSESSMENT: 2 Benign Finding(s) RECOMMENDATION: RECOMMENDATION: ROUTINE SCREENING. COMMENT: The patient has been notified of the results by letter per SA requirements. Additional no tification policies are in place for contacting patient with suspicious or incomplete findings. Quality ID #[id number]: The [employer] recommends an annual screening mammogram for women aged 40 years or over. This facility utilizes a reminder system to ensure that all patients receive reminder letters, and/or direct phone calls for appointments. This includes reminders for routine scr eening mammograms, diagnostic mammograms, or other Breast Imaging Interventions when appropriate. Th is patient will be placed in the appropriate reminder system. TECHNICAL DOCUMENTATION: FINDING NUMBER: (1) ASSESSMENT: (1) JOB ID: [id number] [facility]- All Rights Reserved Reading location - IP/workstation name: PROGRAM DEVELOPMENT MANAGER-[facility]-RR
== END ==
LOC: WI 10:40
PROVIDERS: ATTEND Internal Medicine Hematology & Oncology
DX: Z12.31 Encounter for screening mammogram for malignant neoplasm of breast (principal); Z79.811 Long term (current) use of aromatase inhibitors
CPT/HCPCS: 77080